=== PATIENT | male | born 1950 | race Caucasian/White ===

== ENCOUNTER → 2019-08-08 | Outpatient (CLI) | payer MEDICARE, BC ==
[~2019-08-08] MED LIST: BEE POLLEN; CHOL10002 PO; LORA1SY PO
== END | disposition home or self-care (01) ==
LOC: LAB SHORT 09:12 → PLD 09:12
DX: D48.5 Neoplasm of uncertain behavior of skin (principal)
CPT/HCPCS: 88305

== ENCOUNTER 2020-08-26 07:01 | Day surgery (SDC) | payer MEDICARE ==
[~2020-08-26] VITALS: Ht 177.8 cm; Wt 80.1 kg
[~2020-08-26 07:01] MED LIST changes: +ZOLP10 PO
--- NOTE | 2020-08-26 07:26 | NUR ---
History, Chart, Medications and Allergies reviewed before start of procedure. Patient confirms NPO status and agrees with scheduled surgery. Patient States Post-Procedure ride home has been arranged with his .
--- NOTE | 2020-08-26 07:33 | NUR ---
Lungs clear T/O to Auscultation.
--- NOTE | 2020-08-26 11:17 | NUR ---
Patient up to Ambulate independently. Gait steady. Discharge instructions reviewed with patient. Patient verbalizes understanding. Copy given to patient to take home.PT GIVEN ICE PACK TO TAKE HOME.DENIES NAUSEA.MEDICATED FOR PAIN "PRESSURE" FEELING IN RIGHT GROIN. Discharged via wheelchair to private car for ride home WITH
== END 2020-08-26 23:00 | disposition home or self-care (01) ==
LOC: ORSCMMR 07:01 → ORD 08:30 → ORSCMMR 08:30
PROVIDERS: Surgery
PROC: 0YU50JZ Supplement Right Inguinal Region with Synthetic Substitute, Open Approach (ICD-10-PCS; principal; 2020-08-26 08:30)
DX: K40.90 Unilateral inguinal hernia, without obstruction or gangrene, not specified as recurrent (principal); E78.5 Hyperlipidemia, unspecified; Z79.899 Other long term (current) drug therapy
CPT/HCPCS: A9270-GY; C1781; J1100; J2250; J2370; J2405; J2704; J3010; J7120

== ENCOUNTER 2020-11-21 13:23 | Day surgery (SDC) | payer MEDICARE ==
[~2020-11-21] VITALS: Ht 177.8 cm; Wt 81.3 kg
--- NOTE | 2020-11-21 14:33 | NUR ---
11/21/20 1433 Nell Holguin 0.15MG EPI MIXED WITH 30ML MARCAINE 0.5% TO RECONSITUTE MARCAINE 0.5% W/EPI 1:200,000. MIXED IN OR BY RN. INJECTED BY MD AT END OF PROCEDURE
== END 2020-11-21 15:44 | disposition home or self-care (01) ==
LOC: ORSCSDS 13:23
PROVIDERS: Podiatrist Foot & Ankle Surgery
PROC: 0JNR0ZZ Release Left Foot Subcutaneous Tissue and Fascia, Open Approach (ICD-10-PCS; principal; 2020-11-21 14:45)
DX: M72.2 Plantar fascial fibromatosis (principal); Z79.899 Other long term (current) drug therapy
CPT/HCPCS: J0171; J1100; J2250; J2405; J2704; J3010; J3370; J7120

== ENCOUNTER → 2020-12-09 | Outpatient (CLI) | payer MEDICARE | LOC: LAB SHORT 10:43 | DX: D48.5 Neoplasm of uncertain behavior of skin (principal); L43.9 Lichen planus, unspecified; Z88.0 Allergy status to penicillin; Z88.1 Allergy status to other antibiotic agents | CPT/HCPCS: 88305 ==